=== PATIENT | male | born 1945 | race Caucasian/White ===

== ENCOUNTER → 2018-06-06 | Outpatient (CLI) | payer BC, MEDICARE ==
[2018-06-06 10:14] LABS: Basophils % (A) 0 %; Eosinophils # (A) 0.1 k/uL (0-0.7); Eosinophils % (A) 2 %; HCT 46.8 % (39.0-53.0); HGB 15.4 gm/dL (13.0-17.5); Lymphocytes # (A) 1.4 k/uL (1.0-4.8); Lymphocytes % (A) 25 %; MCH 30.3 pg (25.0-35.0); MCHC 32.8 g/dL (31.0-37.0); MCV 92.4 fL (80.0-100.0); Mean Platelet Volume 8.2; Monocytes # (A) 0.4 k/uL (0-1.0); Monocytes % (A) 8 %; Neutrophils # (A) 3.5 k/uL (1.3-7.7); Neutrophils % (A) 63 %; Platelet Count 202 k/uL (150-450); RBC 5.07 m/uL (4.30-5.90); RDW 12.9 % (11.5-15.5); WBC 5.6 k/uL (3.8-10.6)
[2018-06-06 10:16] LABS: Appearance,Urine Clear (Clear); Bilirubin,Urine Negative (Negative); Blood,Urine Negative (Negative); Color,Urine Light Yellow; Glucose,Urine (UA) Negative (Negative); Ketones,Urine Negative (Negative); Leukocyte Esterase,Urine Negative (Negative); Nitrite,Urine Negative (Negative); Protein,Urine Negative (Negative); Specific Gravity,Urine 1.006 (1.001-1.035); Urobilinogen,Urine <2.0 mg/dL (<2.0)
[2018-06-06 10:30] LABS: Calcium 10.3 mg/dL (8.4-10.2); Potassium 4.6 mmol/L (3.5-5.1)
== END | disposition home or self-care (01) ==
LOC: LABPAT 09:11
PROVIDERS: ATTEND Urology
DX: Z01.818 Encounter for other preprocedural examination (principal); Z01.812 Encounter for preprocedural laboratory examination; C61 Malignant neoplasm of prostate; N52.9 Male erectile dysfunction, unspecified; R53.83 Other fatigue; R35.0 Frequency of micturition
CPT/HCPCS: 36415; 80048; 81003; 85025; 87086; 93005

== ENCOUNTER 2018-06-13 06:36 | Day surgery (SDC) | payer BC, MEDICARE ==
[2018-06-08 14:12] VITALS: BMI 30.7
--- NOTE | 2018-06-12 20:58 | P.GSHP ---
History of Present Illness H&P Date: 06/12/18 72 yo male sp radical prostatectomy in 2012, post op radiation therapy in 2013 He has been on intermittent lhrh therapy. He is impotent He has failed pde5 inhibitors, vacuum pump and vaso active injections He comes for an IPP. The risks and complications including pain, erosion , lack of satisfaction, mechanical failure, injury to adjacent organs among others have been explained , accepted by the patient - Constitutional Constitutional: Denies chills, Denies fever - EENT Eyes: denies blurred vision, denies pain Ears, nose, mouth and throat: Denies headache, Denies sore throat - Cardiovascular Cardiovascular: Denies chest pain, Denies shortness of breath - Respiratory Respiratory: Denies cough, Denies 7 - Gastrointestinal Gastrointestinal: Denies abdominal pain, Denies diarrhea, Denies nausea, Denies vomiting - Genitourinary (Female) Genitourinary: Denies dysuria, Denies hematuria - Genitourinary (Male) Genitourinary: Denies dysuria, Denies hematuria - Musculoskeletal Musculoskeletal: Denies myalgias - Integumentary Integumentary: Denies pruritus, Denies rash - Neurological Neurological: Denies numbness, Denies weakness - Psychiatric Psychiatric: Denies anxiety, Denies depression - Endocrine Endocrine: Denies fatigue, Denies weight change Past Medical History Past Medical History: Cancer Additional Past Medical History / Comment(s): prostate cancer History of Any Multi-Drug Resistant Organisms: None Reported Past Surgical History: Prostate Surgery Additional Past Surgical History / Comment(s): prostatectomy 2014 with radiation Past Anesthesia/Blood Transfusion Reactions: No Reported Reaction Smoking Status: Never smoker - Past Family History Father Family Medical History: Deep Vein Thrombosis (DVT) Mother Family Medical History: Cancer Additional Family Medical History / Comment(s): ovarian cancer Medications and Allergies Home Medications Medication Instructions Recorded Confirmed Type Bicalutamide [Casodex] 50 mg PO DAILY 06/08/18 06/08/18 History Hormone Shots 1 dose INJ Q90D 06/08/18 06/08/18 History Allergies Allergy/AdvReac Type Severity Reaction Status Date / Time No Known Allergies Allergy Verified 06/08/18 14:03 Surgical - Exam - General well developed, well nourished, no distress - Eyes PERRL - ENT no hearing loss - Neck no masses, trachea midline - Respiratory normal expansion, normal respiratory effort - Cardiovascular Rhythm: regular - Abdomen Abdomen: soft, non tender - Genitourinary normal penis with no external lesions, testicles present - Integumentary no rash, no growths - Neurologic normal coordination, normal sensation - Musculoskeletal normal gait, normal posture - Psychiatric oriented to time, oriented to person, oriented to place, speech is normal, memory intact Assessment and Plan Assessment: Impression: 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
[~2018-06-13 06:36] MED LIST: AMPICILLIN 1,000 MG in SODIUM CHLORIDE 0.9% 50 ML IVPB ONE; DEXAMETHASONE SOD PHOSPHATE 10 MG/ML 1 ML VIAL IV ONE; GENTAMICIN 120 MG in SODIUM CHLORIDE 0.9% 100 ML IVPB ONE; HYDROmorphone 0.5 MG/0.5 ML SYRINGE IVP PRN; LACTATED RINGERS 1,000 ML IV SCH; LIDOCAINE 1% 20 ML VIAL (10MG/ML) FOR IV START INTRADERMA PRN; ONDANSETRON 4 MG/2 ML VIAL IVP ONE
[2018-06-13] MEDS ORDERED: LACTATED RINGERS 1,000 ML IV ONE ×2 (07:17→08:45)
[2018-06-13] MEDS ORDERED: LIDOCAINE 1% INJ 10MG/ML (20 ML MDV) ONE (07:55)
[2018-06-13] MEDS ORDERED: NEOSTIGMINE 1 MG/ML 10 ML VIAL ONE (07:55)
[2018-06-13] MEDS ORDERED: SUCCINYLCHOLINE CHLORIDE 100 MG/5 ML SYR IV ONE (07:55)
[2018-06-13] MEDS ORDERED: fentaNYL (PF) 50 MCG/ML 2 ML AMP ONE (07:55)
[2018-06-13] MEDS ORDERED: MIDAZOLAM 2 MG/2 ML VIAL ONE (07:55)
[2018-06-13] MEDS ORDERED: KETOROLAC 30 MG/ML 1 ML VIAL ONE (07:55)
[2018-06-13] MEDS ORDERED: GLYCOPYRROLATE 0.2 MG/ML 2 ML VIAL ONE (07:55)
[2018-06-13] MEDS ORDERED: ePHEDrine SULFATE/0.9% NACL/PF 50 MG/5 ML SYRINGE IV ONE (07:55)
[2018-06-13] MEDS ORDERED: ROCURONIUM BROMIDE 10 MG/ML 10 ML VIAL IV ONE (07:55)
[2018-06-13] MEDS ORDERED: PROPOFOL 10 MG/ML 20 ML VIAL IV ONE (07:55)
[2018-06-13] MEDS ORDERED: GENTAMICIN 80 MG in SODIUM CHLORIDE 0.9% 200 ML IRRIGATION ONE (08:27)
--- NOTE | 2018-06-13 09:35 | P.OP ---
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 He was diagnosed and treated with a radical prostatectomy and then radiation therapy for prostate cancer about 6 years ago. He has had impotence since then. He has failed PDE 5 inhibitors, vacuum pump and vasoactive injections. He comes for an inflatable penile implant. Description of Procedure: The patient is brought to the operating suite. He is given a successful general endotracheal anesthesia. An infrapubic incision from the base of the penis to just above the pubis was made. The rectus fascias exposed. I then expose each corpora cavernosum. A clean the connective tissue off each. I placed 3-0 PDS stitch stay stitches in each corpora. I make corporotomies bilaterally. I then dissect the corpora proximally and distally with Metzenbaum scissors and then Hegar dilators 9-13. I measured the length of the corpora at 10 cm proximal and 6 distal on the left and 9 cm proximal and 7 distal on the right. I will do place due to his anatomy a 12 cm implant with 4 cm rear tip extenders. I then open the rectus fascia and in the prevesical space created reservoir for the 65 mL reservoir balloon. The balloon is placed and the tubing is brought throughout the right external inguinal canal. The rectus fascia is closed with interrupted 0 PDS. I then used the Esetvan needles and the Erin introducer to pass the implants to the head of the penis. Each implant sits nicely in the corpora cavernosa. It is inflated without buckling. The corpora cavernosum are closed with 3-0 PDS, this is done bilaterally. The implant inflates and deflates nicely. I then placed the reservoir in the scrotum. I connected the pump to the scrotal reservoir straight connects. I then pump and deflate the implant, it pumps nicely. Irrigate the wound thoroughly. I then closed the wound with 3-0 chromic and then 4-0 Vicryl subcuticular. The patient's awake and returned recovery in good condition. Blood loss is likely 25 mL. He tolerated procedure well and will be discharged home upon recovery.
[2018-06-13 09:52] VITALS: TEMP 96.8
[2018-06-13 10:39] VITALS: RESP 16
[2018-06-13] MEDS ORDERED: HYDROcodone/APAP 5-325MG 1 EACH TAB PO ONE (10:46)
[2018-06-13 11:19] VITALS: BP 156/81; PULSE 77
== END 2018-06-13 12:10 | disposition home or self-care (01) ==
LOC: OR 06:36
PROVIDERS: ATTEND Urology
DX: N52.31 Erectile dysfunction following radical prostatectomy (principal); E66.9 Obesity, unspecified; K21.9 Gastro-esophageal reflux disease without esophagitis; Z85.46 Personal history of malignant neoplasm of prostate; Z90.79 Acquired absence of other genital organ(s); Z68.30 Body mass index [BMI] 30.0-30.9, adult
CPT/HCPCS: 54405; C1813; J2250; J1580 ×2; J1100; J2710; J2405; J2001; J3010; J1885; J0290; J0330; J2704

== ENCOUNTER → 2019-01-29 | Outpatient (CLI) | payer BC, MEDICARE ==
--- NOTE | 2019-01-29 10:03 | CT ---
EXAMINATION TYPE: CT abdomen pelvis w con DATE OF EXAM: 01/29/2019 COMPARISON: NONE HISTORY: 73-year-old male Gross hematuria with history of prostate CA. TECHNIQUE: Contiguous axial scanning of the abdomen and pelvis following administration of 80 ml Isov ue 300 IV contrast. Delayed images through the kidneys and coronal/sagittal reconstructions performe d. CT DLP: 1505.4 mGycm Automated exposure control for dose reduction was used. FINDINGS: Heart normal size without pericardial effusion. Strandy atelectasis left greater than right lung base s. No pleural effusion. Small hiatal hernia. Subcentimeter hypodensity peripheral right liver lobe too small for accurate CT characterization, pos sibly a tiny cyst. Portal venous system is patent. No biliary ductal dilatation. Gallbladder, adrenal glands, kidneys, spleen, and pancreas appear within normal limits. No nephrolithiasis. Symmetric uptake and excretion of contrast from both kidneys. No suspicious filli ng defects seen within either collecting system. Only the distalmost right ureter remains unopacified . Otherwise, no suspicious filling defects seen along the course of either ureter. No dilated small bowel, free fluid, or free air. Borderline size 7 mm preaortic lymph node just prior to the aortic bifurcation, axial image 47. Addit ional small, nonenlarged retroperitoneal lymph nodes are noted.. Normal appendix. Mild overall stool burden. Oral contrast progressed to the proximal sigmoid. There i s sigmoid diverticulosis. No pericolonic inflammatory change Penile implant is demonstrated. The reservoir is located in the pelvis just above the bladder and the valve is noted in the median right scrotal sac. Patulous left inguinal canal. No abnormal fluid collection in the pelvis or pelvic lymphadenopathy se en. There is eccentric irregular mild wall thickening along the left lateral half of the bladder wall, re neeru to coronal image 58 and axial image 79. Bones: Mild degenerative changes at the hips. Mild degenerative disc disease throughout the lumbar sp ine. Focal sclerosis involving the T10 vertebral body, refer to sagittal image 55 is nonspecific. IMPRESSION: 1. MILD TO MODERATE ECCENTRIC UROTHELIAL THICKENING ALONG THE LEFT LATERAL HALF OF THE BLADDER WALL. CORRELATE FOR CYSTITIS VERSUS UNDERLYING UROTHELIAL NEOPLASM. 2. NO SUSPICIOUS RENAL OR COLLECTING SYSTEM LESION. ONLY THE DISTALMOST RIGHT URETER REMAINS NONOPACI FIED ON THE DELAYED IMAGES. THE REMAINDER OF THE URETERS ALSO SHOW NO SUSPICIOUS FILLING DEFECT. 3. BORDERLINE SIZED 7 MM PREAORTIC LYMPH NODE JUST PRIOR TO THE AORTIC BIFURCATION. CORRELATE WITH PS A VALUES AND IMAGING FOLLOW-UP INDICATED. 4. ALSO, CORRELATE WITH PSA VALUES FOR FOCAL SCLEROSIS INVOLVING THE T10 VERTEBRAL BODY. HEMANGIOMA V ERSUS METASTATIC DISEASE ARE DIFFERENTIAL CONSIDERATIONS. 5. SMALL HIATAL HERNIA. PENILE IMPLANT AND SIGMOID DIVERTICULOSIS.
== END | disposition home or self-care (01) ==
LOC: RADCTMAIN 07:36
PROVIDERS: ATTEND Urology
DX: C61 Malignant neoplasm of prostate (principal); K44.9 Diaphragmatic hernia without obstruction or gangrene; K57.30 Diverticulosis of large intestine without perforation or abscess without bleeding; N32.89 Other specified disorders of bladder
CPT/HCPCS: 82565; 84520; 74177; 36415; Q9967

== ENCOUNTER → 2023-03-16 | Outpatient (CLI) | payer MEDICARE ==
--- NOTE | 2023-03-17 13:22 | PE ---
EXAMINATION TYPE: PET CT fusion skull to thigh DATE OF EXAM: 03/16/2023 CLINICAL INDICATION:Male, 77 years old with history of C61 Prostate CA; TECHNIQUE: Following the intravenous administration of 6.2 mCi of F-18 FDG, whole body images are p erformed from the skull base to the midthigh. Images are reviewed on the computer in the coronal, ax ial, and sagittal planes. Reconstructed rotating images are created on independent workstation and r eviewed on the computer. A non-contrast CT is performed in conjunction with the PET scan. CT DLP: 845 mGycm, Automated exposure control for dose reduction was used. COMPARISON: CT 02/25/2019., PET/CT None, FINDINGS: Mediastinal SUV mean is 2.1. Hepatic parenchyma SUV mean is 8.5. SKULL BASE AND NECK: * Left supraclavicular lymph nodes the largest measuring up to 9 mm Max SUV 20.3. Smaller adjacent l ymph node also present max SUV 11.7. CHEST, MEDIASTINUM, AND HILAR REGION: * Abnormal FDG avid lymph nodes in the mediastinum prevascular space/AP window max SUV 2.6, the larg est measuring 10 mm in short axis. ABDOMEN AND PELVIS: Scattered retroperitoneal lymph nodes with abnormal FDG activity , examples include: * Retroperitoneum at the level of the left superior kidney max SUV 17.5 measuring 8 mm. * Near the level of the left mid kidney max SUV 45.5 measuring 14 mm in short axis. * Anterior to the aorta next SUV 18 mm Max SUV 2.0. The prostate gland appears surgically absent. No abnormal radiotracer activity in the surgical bed. MUSCULOSKELETAL STRUCTURES: * Abnormal radiotracer activity within the T10 vertebral body on the right extending into the airport manager ior element max SUV 53.[address]: Atherosclerosis of the arterial vasculature including the carotid bifurcations and coronary arteries. Mild bilateral gynecomastia changes. Penile prosthesis device hardware appears intact. Jared ateral fat-containing inguinal hernias. IMPRESSION: Evidence for metastatic disease with the left lower neck, mediastinal and retroperitoneal lymph nodes as well as the T10 vertebral body.
== END | disposition home or self-care (01) ==
LOC: RADPETMAIN 15:14
PROVIDERS: ATTEND Internal Medicine
DX: C61 Malignant neoplasm of prostate (principal); C79.51 Secondary malignant neoplasm of bone
CPT/HCPCS: 78815; A9596

== ENCOUNTER 2023-03-31 08:54 | Day surgery (SDC) | payer MEDICARE, BC ==
[2023-03-31 09:29] VITALS: RESP 16; TEMP 98.3
[2023-03-31] MEDS ORDERED: ALPRAZolam 0.25 MG TAB PO STA (09:30)
[2023-03-31 10:40] VITALS: BP 176/91; PULSE 70
--- NOTE | 2023-03-31 12:50 | US ---
ULTRASOUND GUIDED CORE BIOPSY LEFT SUPRACLAVICULAR LYMPH NODE: CLINICAL HISTORY: Left supraclavicular lymph node FINDINGS: The procedure was explained to the patient. The risks, complications, benefits and alternatives were discussed and any questions were answered. Informed consent was obtained. Patient was placed supin e on the ultrasound table and prepped and draped in the usual sterile fashion. Utilizing a 18-gauge core biopsy needle, four passes were made into the left supraclavicular lymph node. Patient was stable throughout the procedure. Pathology is pending. All elements of maximal barrier technique were utilized. IMPRESSION: 1. Successful ultrasound guided core biopsy of the requested left supraclavicular lymph node.
== END 2023-03-31 10:30 | disposition home or self-care (01) ==
LOC: RADPROMAIN 08:54
PROVIDERS: ATTEND Internal Medicine
DX: C77.3 Secondary and unspecified malignant neoplasm of axilla and upper limb lymph nodes (principal); C61 Malignant neoplasm of prostate
CPT/HCPCS: 38505; 76942; 88305; 88341; 88342

== ENCOUNTER → 2023-06-12 | Outpatient (CLI) | payer BC, MEDICARE ==
[~2023-06-12] MED LIST changes: -AMPICILLIN 1,000 MG in SODIUM CHLORIDE 0.9% 50 ML IVPB ONE; -DEXAMETHASONE SOD PHOSPHATE 10 MG/ML 1 ML VIAL IV ONE; -GENTAMICIN 120 MG in SODIUM CHLORIDE 0.9% 100 ML IVPB ONE; -HYDROmorphone 0.5 MG/0.5 ML SYRINGE IVP PRN; -LACTATED RINGERS 1,000 ML IV SCH; +LEUPROLIDE ACETATE 45 MG SYRINGEKIT IM NR; +LEUPROLIDE ACETATE 45 MG SYRINGEKIT IM ONE; -LIDOCAINE 1% 20 ML VIAL (10MG/ML) FOR IV START INTRADERMA PRN; -ONDANSETRON 4 MG/2 ML VIAL IVP ONE
[2023-06-12 12:24] VITALS: BP 153/92; PULSE 81; RESP 16; TEMP 97.6
== END ==
LOC: PROCWHC3 11:38
PROVIDERS: ATTEND Internal Medicine
DX: C61 Malignant neoplasm of prostate (principal)
CPT/HCPCS: 96402; J9217

== ENCOUNTER → 2023-08-31 | Outpatient (CLI) | payer MEDICARE, BC ==
--- NOTE | 2023-09-03 15:11 | PE ---
EXAMINATION TYPE: PET CT fusion skull to thigh DATE OF EXAM: 08/31/2023 COMPARISON: None Prior PET/CT: 03/16/2023 HISTORY: Prostate cancer TECHNIQUE: Following the intravenous administration of 5.89 mCi of gallium 28 PSMA, whole body image s are performed from the skull base to the midthigh. Images are reviewed on the computer in the joaquin nal, axial, and sagittal planes. Reconstructed rotating images are created on independent workstatio n and reviewed on the computer. A localization and attenuation correction CT is performed in conjun ction with the PET scan. DLP: 856.31 mGycm SCAN: Subsequent FINDINGS: NECK: There is normal uptake within the salivary glands. There is some subtle mild uptake within the left neck. Some uptake within a lymph node may be present , image 76, SUV 7.1. SUV is diminishing. THORAX: Scattered small areas of uptake are within the mediastinum including the right paratracheal r egion, image 86 SUV 8.5 to the left suprahilar region, image 92, SUV 10.64. SUV is diminishing. Possi gopal small lymph nodes at the aortopulmonic window, example image 94, SUV 4.62. ABDOMEN: There is intense uptake within the prominent lymph node anterior to the mid abdominal aorta, image 180, SUV 27.79. SUV is increasing. There is some uptake in the periaortic lymph node near the level of the renal vein, image 165, SUV 23.74, SUV is diminishing. Some subtle uptake may be within a retrocrural lymph node, image 144, SUV 6.11. Previous SUV 5.76 PELVIS: No abnormal uptake OSSEOUS STRUCTURES: No abnormal uptake. LOCALIZATION CT: Scattered small lymph nodes are present. The enlarged node anterior to the aorta is evident. No obvious osseous lesions. COMPARISON: Findings were present previously., SUV values. A diminishing IMPRESSION: 1. Scattered lymph nodes within the right upper clavicular neck,, mediastinum, and abdomen. Findings were present previously. SUV values are diminishing over the interval.
== END | disposition home or self-care (01) ==
LOC: RADPETMAIN 10:47
PROVIDERS: ATTEND Internal Medicine
DX: C61 Malignant neoplasm of prostate (principal); R59.0 Localized enlarged lymph nodes
CPT/HCPCS: 78815; A9596

== ENCOUNTER → 2023-12-15 | Outpatient (CLI) | payer BC, MEDICARE ==
[2023-12-15] MEDS: LEUPROLIDE ACETATE 45 MG SYRINGEKIT IM NR (11:26)
[2023-12-15 11:30] VITALS: BP 172/86; PULSE 76; RESP 16; TEMP 97.5
== END ==
LOC: PROCWHC3 11:18
PROVIDERS: ATTEND Internal Medicine
DX: C61 Malignant neoplasm of prostate (principal)
CPT/HCPCS: 96402; J9217

== ENCOUNTER → 2024-07-24 | Outpatient (CLI) | payer BC, MEDICARE ==
[2024-07-24 12:51] VITALS: BP 162/80; PULSE 87; RESP 16; TEMP 98
[2024-07-24] MEDS: LEUPROLIDE ACETATE 45 MG SYRINGEKIT IM NR (12:51)
== END ==
LOC: PROCWHC3 12:42
PROVIDERS: ATTEND Internal Medicine
DX: C61 Malignant neoplasm of prostate (principal)
CPT/HCPCS: 96402; J9217; 96401